=== PATIENT | female | born 2000 | race Two or more races ===

== ENCOUNTER 2022-04-13 09:46 | Emergency (ER) | payer OTHER ==
[~2022-04-13] VITALS: Ht 172.7 cm; Wt 59.0 kg
[2022-04-13 10:09] LABS: BILIRUBIN,URINE NEGATIVE (NEGATIVE); COLOR,URINE YELLOW (YELLOW); LEUKOCYTE ESTERASE ,URINE 1+ (NEGATIVE); NITRITE, URINE NEGATIVE (NEGATIVE); PROTEIN,URINE NEGATIVE (NEGATIVE); UGLUCOSE NEGATIVE (NEGATIVE); UROBILINOGEN,URINE 0.2 EU/dL (0.2)
[2022-04-13 10:22] LABS: BACTERIA,URINE Moderate /HPF (None Seen)
[2022-04-13 10:23] LABS: RBC,URINE 0-2 /HPF (0-2)
[2022-04-13] MEDS ORDERED: CEPH500C2 PO (10:44)
[2022-04-13] MEDS ORDERED: CEPHALEXIN MONOHYDRATE 500 MG CAPSULE PO ONE ×2 (10:48→11:00)
--- NOTE | 2022-04-13 10:53 | NUR ---
Patient discharged to home in stable condition. Written and verbal after care instructions given. Patient verbalizes understanding of instruction.
[2022-04-13 11:01] VITALS: BP 135/97
== END 2022-04-13 11:02 | disposition home or self-care (01) ==
LOC: ER 09:59
DX: N39.0 Urinary tract infection, site not specified (principal)
CPT/HCPCS: 81001; 84703-TC; 87086-TC